=== PATIENT | male | born 1980 | race Caucasian/White ===

== ENCOUNTER 2019-08-24 11:06 | Emergency (ER) | payer MEDICARE, OTHER ==
[2019-08-24 11:22] VITALS: RESP 16
--- NOTE | 2019-08-24 11:50 | ED ---
Lower Extremity Injury HPI - General Chief Complaint: Extremity Injury, Lower Stated Complaint: left foot ulcer Time Seen by Provider: 08/24/19 11:23 Source: Caregiver Mode of arrival: ambulatory Limitations: no limitations - History of Present Illness Initial Comments: 39-year-old male with history of [place] tooth syndrome, myelodysplastic syndrome presenting today for chief complaint of left great toe ulceration concerned for infection. She is accompanied by his traveling sales representative who is providing history as patient is nonverbal. She states that they noticed an ulceration yesterday and brought patient to the foot doctor when she was sent to the e mergency department for evaluation of possible foot infection. She states the patient has been going to a new day program when he is gone now and more tenderness used twice she states usually wears slippers. She states they noticed today an area of ulceration on the plantar aspect of the great toe. She states there is some surrounding redness. Denies fevers, coolness, or pallor of the extremity. She states that she noted a blister that had developed on the toe today. She states the toe appears swollen in comparison with baseline. 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 Remaining ROS (-). Upon arrival patient appears nontoxic, no distress, smiling. - Related Data Previous Rx's Medication Instructions Recorded Cephalexin [Keflex] 500 mg PO Q6HR 10 Days #40 cap 08/24/19 Sulfamethox-Tmp 800-160Mg [Bactrim 1 tab PO Q12HR 10 Days #20 tab 08/24/19 DS 800-160 mg] Allergies Allergy/AdvReac Type Severity Reaction Status Date / Time bee stings Allergy Swelling Uncoded 08/24/19 11:17 Review of Systems ROS Statement: Those systems with pertinent positive or pertinent negative responses have been documented in the HPI. ROS Other: All systems not noted in ROS Statement are negative. Past Medical History Additional Past Medical History / Comment(s): Myelodysplastic syndrome, [place]- Ailyn tooth disease. lives in senior care History of Any Multi-Drug Resistant Organisms: None Reported Past Surgical History: No Surgical Hx Reported Past Psychological History: No Psychological Hx Reported Smoking Status: Never smoker Past Alcohol Use History: None Reported Past Drug Use History: Unable to Obtain General Exam - General Exam Comments Initial Comments: General: The patient is awake and alert, in no distress Eye: Pupils are equal, round and reactive to light, extra-ocular movements are intact. No nystagmus. There is normal conjunctiva bilaterally. No signs of icterus. Ears, nose, mouth and throat: There are moist mucous membranes and no oral lesions. Neck: The neck is supple, there is no tenderness or JVD. Cardiovascular: There is a regular rate and rhythm. No murmur, rub or gallop is appreciated. Respiratory: Lungs are clear to auscultation, respirations are non-labored, breath sounds are equal. No wheezes, stridor, rales, or rhonchi. Musculoskeletal: Ulceration on plantar aspect of left great toe, there is small amount of serosanguineous drainage when squeezed otherwise no purulent drainage. No significant erythema there is some spreading redness surrounding the ulceration extending onto the distal foot. Grimaces with deep palpation, no grimacing with light, no obvious foreign body, or deeper injury/ no laceration. Flaccid legs b/l with decreased mm tone. Sensation intact. DP pulses equal bilat erally 2+. Warm foot. Neurological: Non verbal. CN II-XII intact, There are obvious muscle atrophy of UE and LE. Coordination appears grossly intact. Speech is normal. Skin: Skin is warm and dry and no rashes or lesions are noted. Psychiatric: Cooperative, obvious developmental delays Limitations: no limitations Course Vital Signs 08/24/19 08/24/19 11:17 13:00 Temperature 98.2 F 98.4 F Pulse Rate 81 82 Respiratory 16 16 Rate Blood Pressure 116/76 116/77 O2 Sat by Pulse 100 98 Oximetry Medical Decision Making - Medical Decision Making 39-year-old white male presents today for chief complaint of great toe ulceration. Mild cellulitis appreciated. No purulent drainage, XR (-) for osteomyelitis, howver there is suspect old fracture, no laceration consistent with mechanism of foreign body or obvious FB on exam. Patient labs stable. Afebrile, does not appear toxic. No history of DM and compromise. Patient was evaluated in person by my attending provider Dr. 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 - Lab Data Result diagrams: 08/24/19 11:42 08/24/19 11:42 Lab Results 08/24/19 08/24/19 08/24/19 Range/Units 11:42 11:42 11:42 WBC 7.7 (3.8-10.6) k/uL RBC 5.37 (4.30-5.90) m/uL Hgb 14.4 (13.0-17.5) gm/dL Hct 45.2 (39.0-53.0) % MCV 84.2 (80.0-100.0) fL MCH 26.8 (25.0-35.0) pg MCHC 31.8 (31.0-37.0) g/dL RDW 13.2 (11.5-15.5) % Plt Count 232 (150-450) k/uL Neutrophils % (Manual) 40 % Lymphocytes % (Manual) 47 % Monocytes % (Manual) 8 % Eosinophils % (Manual) 3 % Metamyelocytes % 1 % Myelocytes % 1 % Neutrophils # (Manual) 3.08 (1.3-7.7) k/uL Lymphocytes # (Manual) 3.62 (1.0-4.8) k/uL Monocytes # (Manual) 0.62 (0-1.0) k/uL Eosinophils # (Manual) 0.23 (0-0.7) k/uL Metamyelocytes # (Man) 0.08 H (0) k/uL Myelocytes # (Manual) 0.08 H (0) k/uL Nucleated RBCs 0 (0-0) /100 WBC Manual Slide Review Performed Sodium 139 (137-145) mmol/L Potassium 5.1 (3.5-5.1) mmol/L Chloride 105 (98-107) mmol/L Carbon Dioxide 24 (22-30) mmol/L Anion Gap 10 mmol/L BUN 13 (9-20) mg/dL Creatinine 0.42 L (0.66-1.25) mg/dL Est GFR (CKD-EPI)AfAm >90 (>60 ml/min/1.73 sqM) Est GFR (CKD-EPI)NonAf >90 (>60 ml/min/1.73 sqM) Glucose 87 (74-99) mg/dL Plasma Lactic Acid Jakob 1.5 (0.7-2.0) mmol/L Calcium 9.9 (8.4-10.2) mg/dL Total Bilirubin 0.8 (0.2-1.3) mg/dL AST 49 (17-59) U/L ALT 38 (4-49) U/L Alkaline Phosphatase 75 (38-126) U/L Total Protein 8.5 H (6.3-8.2) g/dL Albumin 4.9 (3.5-5.0) g/dL Disposition Clinical Impression: Pressure ulcer of left foot, Left foot pain Disposition: HOME SELF-CARE Condition: Good Additional Instructions: Please use medication as discussed. Please follow-up with podiatry in the next 1-2 days for reevaluation as well as primary care provider. Please return to e mergency room if the symptoms increase or worsen or for any other concerns. Prescriptions: Sulfamethox-Tmp 800-160Mg [Bactrim DS 800-160 mg] 1 tab PO Q12HR 10 Days #20 tab Cephalexin [Keflex] 500 mg PO Q6HR 10 Days #40 cap Is patient prescribed a controlled substance at d/c from ED?: No Referrals: Doyle Aparicio MD [Primary Care Provider] - 1-2 days Time of Disposition: 12:29
[2019-08-24 11:54] LABS: HCT 45.2 % (39.0-53.0); HGB 14.4 gm/dL (13.0-17.5); MCH 26.8 pg (25.0-35.0); MCHC 31.8 g/dL (31.0-37.0); MCV 84.2 fL (80.0-100.0); Mean Platelet Volume 9.9; Platelet Count 232 k/uL (150-450); RBC 5.37 m/uL (4.30-5.90); RDW 13.2 % (11.5-15.5); WBC 7.7 k/uL (3.8-10.6)
--- NOTE | 2019-08-24 12:01 | XR ---
EXAMINATION TYPE: XR foot limited LT DATE OF EXAM: 08/24/2019 CLINICAL HISTORY: Left great toe ulceration. Left foot pain. TECHNIQUE: Frontal, lateral, and oblique images of the left foot are obtained. COMPARISON: None FINDINGS: There is no acute fracture/dislocation evident in the left foot. There is diffuse osseous demineralization. There is punctate either osseous fragment or radiopaque foreign body medial to the interphalangeal joint of the first digit. This measures 1 to 2 mm. No periosteal reaction seen. Soft tissue swelling of the first digit is noted. IMPRESSION: 1. Punctate 1 to 2 mm linear density medial to the interphalangeal joint of the first digit that may represent a small old osseous fragment from a prior fracture deformity or foreign body. Soft tissue s welling of the left foot is seen with no current sequela of osteomyelitis on x-ray. 2. No acute fracture or dislocation in the left foot.
[2019-08-24 12:02] LABS: ALT 38 U/L (4-49); African American GFR (CKD) >90 (>60 ml/min/1.73 sqM); Anion Gap 10 mmol/L; Blood Urea Nitrogen 13 mg/dL (9-20); Calcium 9.9 mg/dL (8.4-10.2); Carbon Dioxide 24 mmol/L (22-30); Chloride 105 mmol/L (98-107); Glucose 87 mg/dL (74-99); Non-African American GFR(CKD) >90 (>60 ml/min/1.73 sqM); Sodium 139 mmol/L (137-145); Total Bilirubin 0.8 mg/dL (0.2-1.3)
[2019-08-24 12:08] LABS: Eosinophils # (M) 0.23 k/uL (0-0.7); Lymphocytes # (M) 3.62 k/uL (1.0-4.8); Metamyelocytes # (M) 0.08 k/uL (0); Metamyelocytes % 1 %; Monocytes # (M) 0.62 k/uL (0-1.0); Myelocytes # (M) 0.08 k/uL (0); Myelocytes % 1 %; Neutrophils # (M) 3.08 k/uL (1.3-7.7); Neutrophils % (M) 40 %; Nucleated Red Blood Cells 0 /100 WBC (0-0); Total Cells Counted 200
[2019-08-24 12:10] LABS: Albumin 4.9 g/dL (3.5-5.0); Potassium 5.1 mmol/L (3.5-5.1); Total Protein 8.5 g/dL (6.3-8.2)
[2019-08-24 12:11] LABS: AST 49 U/L (17-59); Alkaline Phosphatase 75 U/L (38-126)
[2019-08-24] MEDS ORDERED: cefTRIAXone IN SWFI 1,000 MG/10 ML SYRINGE IVP STA (12:28)
[2019-08-24 13:01] VITALS: BP 116/77; PULSE 82; TEMP 98.4
== END 2019-08-24 13:00 | disposition home or self-care (01) ==
LOC: EC 11:06 → EEVIPCON 11:06 → EC 13:00
DX: L97.529 Non-pressure chronic ulcer of other part of left foot with unspecified severity (principal); D46.9 Myelodysplastic syndrome, unspecified; M62.50 Muscle wasting and atrophy, not elsewhere classified, unspecified site; R62.50 Unspecified lack of expected normal physiological development in childhood; Z91.030 Bee allergy status
CPT/HCPCS: 36415; 80053; 83605; 85025; 87040; 73620; 96374; 99283; J0696

== ENCOUNTER 2021-03-05 17:51 | Inpatient (IN) | payer MEDICARE, OTHER ==
[2021-03-05] MEDS ORDERED: SODIUM CHLORIDE 0.9% 1,000 ML IV STA (18:22)
--- NOTE | 2021-03-05 18:52 | ED ---
General Adult HPI - General Chief complaint: Abdominal Pain Stated complaint: GI Issues Time Seen by Provider: 03/05/21 18:21 Source: EMS Mode of arrival: EMS Limitations: physical limitation - History of Present Illness Initial comments: Dictation was produced using ISpeak dictation software. please excuse any grammatical, word or spelling errors. Chief Complaint: 40-year-old male with past medical history of mental delay presents from [facility] home for constipation and possible bowel obstruction History of Present Illness: She is a 40-year-old male he is unable to provide history of present illness. Report was received from nursing received report from EMS. Patient allegedly has not had a bowel movement in 8 days. An x-ray was performed on an outpatient basis showing findings concerning for bowel obstruction. Unable to obtain secondary to mental status PHYSICAL EXAM: General Impression: Alert, smiling not in acute distress HEENT: Normocephalic atraumatic, extra-ocular movements intact, pupils equal and reactive to light bilaterally, mucous membranes moist. Cardiovascular: Heart regular rate and rhythm Chest: Able to complete full sentences, no retractions, no tachypnea Abdomen: abdomen soft, non-tender, non-distended, no organomegaly Musculoskeletal: Pulses present and equal in all extremities, no peripheral ed flynn Motor: no focal deficits noted Neurological: CN II-XII grossly intact, no focal motor or sensory deficits noted Skin: Intact with no visualized rashes Psych: Normal affect and mood ED course: 40-year-old male with history of mental delay presents to the emergency department for possible bowel obstruction and constipation. Vital signs upon arrival are within acceptable limits. Patient's well-appearing at bedside. He has a very benign abdomen on physical examination. No tympany, abdomen is soft. Computed tomography scan shows large amount of stool in the colon with possible rectal impaction. patient is mentally delayed and unable to cooperate and follow appropriate directions if he is given a rectal enema. Patient will be trialed with oral lactulose. He'll be admitted for constipation management. Gen. surgery be consulted. Patient given some oral lactulose. Disimpaction was attempted with some debulking of impacted stool. The stool did not appear to be very hard. Patient well be admitted for further constipation treatment. he appears well-appearing. He is smiling and watching TV. Patient will be admitted to [facility] with general surgery on consult for further care. - Related Data Home Medications Medication Instructions Recorded Confirmed Acetaminophen Tab [Tylenol Tab] 500 - 1,000 mg PO Q6H PRN 03/05/21 03/05/21 Cbd Oil 350mg 700 mg SL BID 03/05/21 03/05/21 EPINEPHrine (Auto Inject) [Epipen] 0.3 mg IM ONCE PRN 03/05/21 03/05/21 Ibuprofen [Motrin Ib] 200 - 400 mg PO Q6H PRN 03/05/21 03/05/21 Lactulose 20 gm PO DAILY 03/05/21 03/05/21 Lactulose [Cephulac] 10 - 20 gm PO DAILY PRN 03/05/21 03/05/21 Magnesium Hydroxide [Milk of 2,400 mg PO HS 03/05/21 03/05/21 Magnesia] Magnesium Hydroxide [Milk of 2,400 mg PO ONCE PRN 03/05/21 03/05/21 Magnesia] Na Phos,M-B/Na Phos,Di-Ba [Fleet 133 ml RECTAL ONCE PRN 03/05/21 03/05/21 Adult] [place]-3 Acid Ethyl Esters [Lovaza] 1 gm PO BID 03/05/21 03/05/21 diphenhydrAMINE [Benadryl] 25 - 50 mg PO Q4-6H PRN 03/05/21 03/05/21 guaiFENesin SYRUP 100MG/5ML 200 mg PO Q6H PRN 03/05/21 03/05/21 [Robitussin] Allergies Allergy/AdvReac Type Severity Reaction Status Date / Time bee venom protein (honey bee) Allergy Swelling Verified 03/05/21 18:40 Review of Systems ROS Statement: Those systems with pertinent positive or pertinent negative responses have been documented in the HPI. ROS Other: All systems not noted in ROS Statement are negative. Past Medical History Past Medical History: Unable to Obtain Additional Past Medical History / Comment(s): Myelodysplastic syndrome, [place]- Ailyn tooth disease. lives in [facility] History of Any Multi-Drug Resistant Organisms: None Reported Past Surgical History: No Surgical Hx Reported Past Psychological History: No Psychological Hx Reported Smoking Status: Never smoker Past Alcohol Use History: None Reported Past Drug Use History: Unable to Obtain General Exam Limitations: physical limitation Course Vital Signs 08/26/21 08/26/21 17:54 20:51 Temperature 97.4 F L Pulse Rate 81 74 Respiratory 18 18 Rate Blood Pressure 126/88 139/86 O2 Sat by Pulse 99 97 Oximetry Medical Decision Making - Lab Data Result diagrams: 03/05/21 18:50 03/05/21 18:50 Lab Results 03/05/21 03/05/21 03/05/21 Range/Units 18:50 18:50 18:50 WBC 7.6 (3.8-10.6) k/uL RBC 5.91 H (4.30-5.90) m/uL Hgb 16.4 (13.0-17.5) gm/dL Hct 50.3 (39.0-53.0) % MCV 85.1 (80.0-100.0) fL MCH 27.7 (25.0-35.0) pg MCHC 32.6 (31.0-37.0) g/dL RDW 13.8 (11.5-15.5) % Plt Count 242 (150-450) k/uL MPV 11.2 Neutrophils % (Manual) 49 % Band Neuts % (Manual) 1 % Lymphocytes % (Manual) 41 % Monocytes % (Manual) 5 % Eosinophils % (Manual) 4 % Neutrophils # 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 OPERATOR Neutrophils # (Manual) 3.80 (1.3-7.7) k/uL Lymphocytes # (Manual) 3.12 (1.0-4.8) k/uL Monocytes # (Manual) 0.38 (0-1.0) k/uL Eosinophils # (Manual) 0.30 (0-0.7) k/uL Nucleated RBCs 0 (0-0) /100 WBC Sodium 141 (137-145) mmol/L Potassium 4.7 (3.5-5.1) mmol/L Chloride 102 (98-107) mmol/L Carbon Dioxide 28 (22-30) mmol/L Anion Gap 11 mmol/L BUN 10 (9-20) mg/dL Creatinine 0.46 L (0.66-1.25) mg/dL Est GFR (CKD-EPI)AfAm >90 (>60 ml/min/1.73 sqM) Est GFR (CKD-EPI)NonAf >90 (>60 ml/min/1.73 sqM) Glucose 88 (74-99) mg/dL Plasma Lactic Acid Jakob 1.6 (0.7-2.0) mmol/L Calcium 10.5 H (8.4-10.2) mg/dL Magnesium 2.6 H (1.6-2.3) mg/dL Total Bilirubin 0.5 (0.2-1.3) mg/dL AST 28 (17-59) U/L ALT 30 (4-49) U/L Alkaline Phosphatase 85 (38-126) U/L Total Protein 8.2 (6.3-8.2) g/dL Albumin 5.0 (3.5-5.0) g/dL Disposition Clinical Impression: Constipation Disposition: ADMITTED IP TO THIS HOSP Condition: Fair Referrals: None,Stated [Primary Care Provider] - 1-2 days
[2021-03-05 18:58] LABS: HCT 50.3 % (39.0-53.0); HGB 16.4 gm/dL (13.0-17.5); MCH 27.7 pg (25.0-35.0); MCHC 32.6 g/dL (31.0-37.0); MCV 85.1 fL (80.0-100.0); Mean Platelet Volume 11.2; Platelet Count 242 k/uL (150-450); RBC 5.91 m/uL (4.30-5.90); RDW 13.8 % (11.5-15.5); WBC 7.6 k/uL (3.8-10.6)
[2021-03-05 19:08] LABS: ALT 30 U/L (4-49); AST 28 U/L (17-59); African American GFR (CKD) >90 (>60 ml/min/1.73 sqM); Alkaline Phosphatase 85 U/L (38-126); Anion Gap 11 mmol/L; Blood Urea Nitrogen 10 mg/dL (9-20); Calcium 10.5 mg/dL (8.4-10.2); Carbon Dioxide 28 mmol/L (22-30); Chloride 102 mmol/L (98-107); Glucose 88 mg/dL (74-99); Magnesium 2.6 mg/dL (1.6-2.3); Non-African American GFR(CKD) >90 (>60 ml/min/1.73 sqM); Potassium 4.7 mmol/L (3.5-5.1); Sodium 141 mmol/L (137-145); Total Bilirubin 0.5 mg/dL (0.2-1.3); Total Protein 8.2 g/dL (6.3-8.2)
[2021-03-05 19:25] LABS: Band Neutrophils % 1 %; Lymphocytes # (M) 3.12 k/uL (1.0-4.8); Monocytes # (M) 0.38 k/uL (0-1.0); Neutrophils % (M) 49 %; Nucleated Red Blood Cells 0 /100 WBC (0-0); Total Cells Counted 100
--- NOTE | 2021-03-05 20:13 | XR ---
EXAMINATION TYPE: XR abdomen acute w cxr DATE OF EXAM: 03/05/2021 COMPARISON: NONE HISTORY: 40-year-old male constipation TECHNIQUE: Supine, upright, and left side down lateral decubitus views of the abdomen are obtained. FINDINGS: Patient is rotated towards the right casting differential density over the right hemithorax . No consolidation or pleural effusion. Lung volumes diminished. No evidence for free intraperitoneal air. Solid stool distending the rectum up to 7.9 cm wide. The right hemicolon is gassy distended up to 7.4 cm. Moderate additional stool within the left side of the colon. No dilated small bowel loops. No di fferential air-fluid levels. IMPRESSION: Marked distention of the rectum up to 7.9 cm wide secondary to solid stool impaction. Additional mode rate stool within the left side of the colon and gaseous distention of the right side of the colon, d ilated up to 7.4 cm. Relative distal colonic obstruction from fecal impaction not excluded. Recommend appropriate disimpaction and cleansing enema.
--- NOTE | 2021-03-05 21:21 | CT ---
EXAMINATION TYPE: CT abdomen pelvis w con DATE OF EXAM: 03/05/2021 COMPARISON: None HISTORY: suspected bowel obstruction CT DLP: 813.1 mGycm, Automated Exposure Control for Dose Reduction was Utilized. CONTRAST: CT scan of the abdomen and pelvis is performed with oral and with IV Contrast, patient injected with 100 mL of Isovue 300. FINDINGS: LUNG BASES: Bibasilar subsegmental atelectasis. INCLUDED CARDIAC STRUCTURES: Unremarkable LIVER: No significant abnormality is appreciated. GALLBLADDER : Enhancement of the gallbladder wall with questionable filling defects, no fluid surroun ding the gallbladder. BILIARY TREE: No abnormal biliary tree dilation. PANCREAS: No significant abnormality is seen. SPLEEN: No significant abnormality is seen. ADRENALS: No significant abnormality is seen. KIDNEYS AND URETERS: No significant abnormality is seen. URINARY BLADDER: No significant abnormality is appreciated. PROSTATE: Unremarkable. ESOPHAGUS: No significant abnormality is seen. STOMACH: No significant abnormality is seen. SMALL BOWEL: No significant abnormality is seen. LARGE BOWEL: No significant abnormality is seen. No intestinal obstruction. Large amount of stool in the colon and rectum. APPENDIX: No significant abnormality is seen. HERNIAS: No significant abnormality is seen. PERITONEUM/MESENTRY: No pneumoperitoneum or ascites. LYMPH NODES: No enlarged retroperitoneal or pelvic lymph nodes are appreciated. MAJOR VASCULAR STRUCTURES: Nonaneurysmal aorta. Unremarkable inferior vena cava. OSSEOUS STRUCTURES: Calcification of the T8-9 disc. No acute osseous normality. IMPRESSION: No evidence of acute intra-abdominal or pelvic processes. Large amount of stool in the colon with possible rectal impaction.
[2021-03-05] MEDS ORDERED: LACTULOSE 20 GM/30 ML CUP PO ONE (21:29)
[2021-03-05] MEDS ORDERED: NALOXONE 0.4 MG/ML 1 ML VIAL IV PRN (22:05)
[2021-03-05] MEDS ORDERED: polyethylene glycoL 3350 17 GM POWD.PACK PO STA (22:06)
[2021-03-05] MEDS: SODIUM CHLORIDE 0.9% 1,000 ML IV SCH (22:31)
--- NOTE | 2021-03-05 23:32 | P.HPIM ---
History of Present Illness H&P Date: 03/05/21 The patient is a 40-year-old male with a PMH of severe developmental delay, resident of an adult foster care who was sent in to the emergency room due to constipation. History obtained from the chart and from the ED physician as the patient was nonverbal at interview and examination. The patient had reportedly not had a bowel movement in the past 8 days with an x-ray that was performed in the outpatient setting showing possible bowel obstruction. In the emergency room, a CT abdomen and pelvis revealed a large amount of stool in the colon with possible rectal impaction. Laboratory evaluation from the emergency room was unremarkable. Vital signs were also unremarkable. The patient underwent manual disimpaction in the emergency room and is being admitted for further management. Review of systems: Pertinent positives and negatives as discussed in HPI, a complete review of systems was performed and all other systems are negative. Physical examination: General: non toxic, no distress, appears at stated age, normal weight Derm: no unusual rashes/lesions no unusual ecchymoses, warm, dry Head: atraumatic, normocephalic, symmetric Eyes: EOMI, no lid lag, anicteric sclera, pupils equal round reactive to light ENT: Nose and ears atraumatic, no thrush, no pharyngeal erythema Neck: No thyromegaly, no cervical lymphadenopathy, trachea midline, supple Mouth: no lip lesion, mucus membranes moist, poor dentition Cardiovascular: S1S2 reg, no murmur, positive posterior tibial pulse bilateral, no edema, capillary refill less than 2 seconds Lungs: CTA bilateral, no rhonchi, no rales , no accessory muscle use Abdominal: soft, nontender to palpation, no guarding, no appreciable organom egaly, normal bowel sounds Ext: no gross muscle atrophy, unable to test strength is patient not following commands, moving all extremities, no contractures, Neuro: No gross focal deficits noted, limited exam as patient not following commands, maintaining eye contact and opened mouth for examination Assessment/plan Constipation with possible rectal impaction -Status post manual disimpaction -Status post lactulose and MiraLAX -Continue with IV fluids -Continue with home dose of lactulose 20 mg daily along with milk of magnesia 2400 mg daily at bedtime DVT prophylaxis -Heparin subq The patient is admitted with an anticipated les than 2 midnight stay for evaluation of fecal impaction CODE STATUS: Full Code Discussed with: ROSIO Anticipated discharge date: in am Anticipated discharge place: [facility] Past Medical History Past Medical History: Unable to Obtain Additional Past Medical History / Comment(s): Myelodysplastic syndrome, [place]- Ailyn tooth disease. lives in assisted History of Any Multi-Drug Resistant Organisms: None Reported Past Surgical History: No Surgical Hx Reported Past Psychological History: No Psychological Hx Reported Smoking Status: Never smoker Past Alcohol Use History: None Reported Past Drug Use History: Unable to Obtain - Past Family History Father Family Medical History: Unable to Obtain Additional Family Medical History / Comment(s): Unable to obtain due to severe delay Medications and Allergies Home Medications Medication Instructions Recorded Confirmed Type Acetaminophen Tab [Tylenol Tab] 500 - 1,000 mg PO Q6H PRN 03/05/21 03/05/21 History Cbd Oil 350mg 700 mg SL BID 03/05/21 03/05/21 History EPINEPHrine (Auto Inject) [Epipen] 0.3 mg IM ONCE PRN 03/05/21 03/05/21 History Ibuprofen [Motrin Ib] 200 - 400 mg PO Q6H PRN 03/05/21 03/05/21 History Lactulose 20 gm PO DAILY 03/05/21 03/05/21 History Lactulose [Cephulac] 10 - 20 gm PO DAILY PRN 03/05/21 03/05/21 History Magnesium Hydroxide [Milk of 2,400 mg PO HS 03/05/21 03/05/21 History Magnesia] Magnesium Hydroxide [Milk of 2,400 mg PO ONCE PRN 03/05/21 03/05/21 History Magnesia] Na Phos,M-B/Na Phos,Di-Ba [Fleet 133 ml RECTAL ONCE PRN 03/05/21 03/05/21 History Adult] [place]-3 Acid Ethyl Esters [Lovaza] 1 gm PO BID 03/05/21 03/05/21 History diphenhydrAMINE [Benadryl] 25 - 50 mg PO Q4-6H PRN 03/05/21 03/05/21 History guaiFENesin SYRUP 100MG/5ML 200 mg PO Q6H PRN 03/05/21 03/05/21 History [Robitussin] Allergies Allergy/AdvReac Type Severity Reaction Status Date / Time bee venom protein (honey bee) Allergy Swelling Verified 03/05/21 18:40 Physical Exam Vitals: Vital Signs Temp Pulse Resp BP Pulse Ox 03/05/21 22:35 98.1 F 74 18 117/78 100 03/05/21 20:51 74 18 139/86 97 03/05/21 17:54 97.4 F L 81 18 126/88 99 Intake and Output 03/05/21 03/05/21 03/06/21 14:59 22:59 06:59 Other: Weight 68.039 kg Results CBC & Chem 7: 03/05/21 18:50 03/05/21 18:50 Labs: Abnormal Lab Results - Last 24 Hours (Table) 03/05/21 03/05/21 Range/Units 18:50 18:50 RBC 5.91 H (4.30-5.90) m/uL Creatinine 0.46 L (0.66-1.25) mg/dL Calcium 10.5 H (8.4-10.2) mg/dL Magnesium 2.6 H (1.6-2.3) mg/dL
[2021-03-06] MEDS: HEPARIN SODIUM,PORCINE/PF 5,000 UNIT/0.5 ML SYRINGE SQ SCH ×4 (03:11→23:58)
[2021-03-06] MEDS: LACTULOSE 20 GM/30 ML CUP PO SCH (10:09)
[2021-03-06] MEDS: SODIUM CHLORIDE 0.9% 1,000 ML IV SCH ×2 (12:21→23:58)
--- NOTE | 2021-03-06 12:43 | P.PN ---
Subjective Progress Note Date: 03/06/21 Patient appeared comfortable today. He denies any abdominal pain. Objective - Vital Signs Vital signs: Vital Signs Temp 97.3 F L 03/06/21 07:00 Pulse 83 03/06/21 07:00 Resp 16 03/06/21 07:00 BP 128/75 03/06/21 07:00 Pulse Ox 95 03/06/21 07:00 Intake & Output 03/05/21 03/06/21 03/06/21 18:59 06:59 18:59 Intake Total 118 Balance 118 Weight 68.039 kg 68.039 kg Intake: Oral 118 Other: Voiding Method Diaper - Exam General: The patient is awake and alert, in no distress Eye: there is normal conjunctiva bilaterally. Neck: The neck is supple, there is no JVD. Cardiovascular: Normal S1-S2, no S3-S4, no murmurs. Respiratory: Lungs clear to auscultation bilaterally Gastrointestinal: Abdomen is soft, nontender Musculoskeletal: There is no pedal edema. . Skin: Skin is warm and dry - Labs CBC & Chem 7: 03/05/21 18:50 03/05/21 18:50 Labs: Abnormal Lab Results - Last 24 Hours (Table) 03/05/21 03/05/21 Range/Units 18:50 18:50 RBC 5.91 H (4.30-5.90) m/uL Creatinine 0.46 L (0.66-1.25) mg/dL Calcium 10.5 H (8.4-10.2) mg/dL Magnesium 2.6 H (1.6-2.3) mg/dL Assessment and Plan Assessment: This is a 40-year-old male with past medical history of developmental delay who presented to the emergency room from a local adult foster care with constipation and not having bowel movement for a few days. Patient was evaluated in the ER and CT abdomen and pelvis showed large amount of stool in the colon with possible rectal impaction. Patient was disimpacted in the ER. He is maintained on bowel regimen. To the hospital for gentle IV fluid hydration. His overall condition improved significantly. We will continue to monitor for the rest of the day and initial patient is having bowel movement. Anticipate discharge home tomorrow.
--- NOTE | 2021-03-06 12:44 | P.GSCN ---
History of Present Illness Consult date: 03/06/21 History of present illness: CHIEF COMPLAINT: Constipation HISTORY OF PRESENT ILLNESS: This is a 40-year-old male with severe developmental delay and myelodysplastic syndrome. Patient lives in adult foster care facility. He presents to the emergency room due to constipation. Patient is nonverbal. Information was obtained from patient's chart. It was reported the patient had not had a bowel movement in about 8 days. Patient had abdominal x- ray and a computed tomography scan of the abdomen that showed no evidence for acute intra-abdominal or pelvic process. Large amount of stool in the colon with possible rectal impaction. Patient was disimpacted in the ER. He has received lactulose, MiraLAX and mag. Patient did have another bowel movement this morning. His abdomen is soft and nondistended. No nausea or vomiting reported. Surgical service was consult in regards to rectal impaction. PAST MEDICAL HISTORY: See list. PAST SURGICAL HISTORY: See list. MEDICATIONS: See list. ALLERGIES: See list. SOCIAL HISTORY: No illicit drug use. REVIEW OF SYSTEMS: CONSTITUTIONAL: Denies fever or chills. HEENT: Denies blurred vision, vision changes, or eye pain. Denies hemoptysis CARDIOVASCULAR: Denies chest pain or pressure. RESPIRATORY: No shortness of breath. GASTROINTESTINAL: See HPI for pertinent findings HEMATOLOGIC: Denies bleeding disorders. GENITOURINARY: Denies any blood in urine or increased urinary frequency. SKIN: Denies pruitis. Denies rash. PHYSICAL EXAM: VITAL SIGNS: Reviewed GENERAL: Well-developed in no acute distress. HEENT: No sclera icterus. Extraocular movements grossly intact. Moist buccal mucosa. Head is atraumatic, normocephalic. No nasal drainage. ABDOMEN: Soft. Nondistended. Nontender NEUROLOGIC: Awake and alert. Nonverbal LABORATORY DATA: WBC 7.6 hemoglobin 16.4 platelets 242 sodium 141 creatinine 0.46 IMAGING: Abdominal x-ray marked distention of the rectum up to 7.9 cm wide secondary to s olid stool impaction. Additional moderate stool within the left side of the colon and gases distention of the right side of the colon dilated up to 7.4 cm. Relative distal colonic obstruction from fecal impaction excluded. Recommend appropriate disimpaction and cleansing enema. Computed tomography scan abdomen and pelvis no evidence of acute intra-abdominal or pelvic processes. Large amount of stool in the colon with possible rectal impaction ASSESSMENT: 1. Constipation and rectal fecal impaction status post disimpaction by ER physician PLAN: -No surgical intervention planned -Continue bowel regimen -Continue regular pureed diet -Patient can be discharge from surgical standpoint when medically cleared Thank you for this consultation Physician Software Developer Mid Level note has been reviewed by physician. Signing provider agrees with the documented findings, assessment, and plan of care. Past Medical History Past Medical History: Unable to Obtain Additional Past Medical History / Comment(s): Myelodysplastic syndrome, Adin- Ailyn tooth disease. lives in halfway History of Any Multi-Drug Resistant Organisms: None Reported Past Surgical History: No Surgical Hx Reported Past Psychological History: No Psychological Hx Reported Smoking Status: Never smoker Past Alcohol Use History: None Reported Past Drug Use History: Unable to Obtain - Past Family History Father Family Medical History: Unable to Obtain Additional Family Medical History / Comment(s): Unable to obtain due to severe delay Medications and Allergies Home Medications Medication Instructions Recorded Confirmed Type Acetaminophen Tab [Tylenol Tab] 500 - 1,000 mg PO Q6H PRN 03/05/21 03/05/21 History Cbd Oil 350mg 700 mg SL BID 03/05/21 03/05/21 History EPINEPHrine (Auto Inject) [Epipen] 0.3 mg IM ONCE PRN 03/05/21 03/05/21 History Ibuprofen [Motrin Ib] 200 - 400 mg PO Q6H PRN 03/05/21 03/05/21 History Lactulose 20 gm PO DAILY 03/05/21 03/05/21 History Lactulose [Cephulac] 10 - 20 gm PO DAILY PRN 03/05/21 03/05/21 History Magnesium Hydroxide [Milk of 2,400 mg PO HS 03/05/21 03/05/21 History Magnesia] Magnesium Hydroxide [Milk of 2,400 mg PO ONCE PRN 03/05/21 03/05/21 History Magnesia] Na Phos,M-B/Na Phos,Di-Ba [Fleet 133 ml RECTAL ONCE PRN 03/05/21 03/05/21 History Adult] [place]-3 Acid Ethyl Esters [Lovaza] 1 gm PO BID 03/05/21 03/05/21 History diphenhydrAMINE [Benadryl] 25 - 50 mg PO Q4-6H PRN 03/05/21 03/05/21 History guaiFENesin SYRUP 100MG/5ML 200 mg PO Q6H PRN 03/05/21 03/05/21 History [Robitussin] Allergies Allergy/AdvReac Type Severity Reaction Status Date / Time bee venom protein (honey bee) Allergy Swelling Verified 03/05/21 18:40 Surgical - Exam Vital Signs Temp Pulse Resp BP Pulse Ox 97.4 F L 81 18 126/88 99 03/05/21 17:54 03/05/21 17:54 03/05/21 17:54 03/05/21 17:54 03/05/21 17:54 Results - Labs 03/05/21 18:50 03/05/21 18:50 Abnormal Lab Results - Last 24 Hours (Table) 03/05/21 03/05/21 Range/Units 18:50 18:50 RBC 5.91 H (4.30-5.90) m/uL Creatinine 0.46 L (0.66-1.25) mg/dL Calcium 10.5 H (8.4-10.2) mg/dL Magnesium 2.6 H (1.6-2.3) mg/dL Diabetes panel 03/05/21 Range/Units 18:50 Sodium 141 (137-145) mmol/L Potassium 4.7 (3.5-5.1) mmol/L Chloride 102 (98-107) mmol/L Carbon Dioxide 28 (22-30) mmol/L BUN 10 (9-20) mg/dL Creatinine 0.46 L (0.66-1.25) mg/dL Glucose 88 (74-99) mg/dL Calcium 10.5 H (8.4-10.2) mg/dL AST 28 (17-59) U/L ALT 30 (4-49) U/L Alkaline Phosphatase 85 (38-126) U/L Total Protein 8.2 (6.3-8.2) g/dL Albumin 5.0 (3.5-5.0) g/dL Calcium panel 03/05/21 Range/Units 18:50 Calcium 10.5 H (8.4-10.2) mg/dL Albumin 5.0 (3.5-5.0) g/dL Pituitary panel 03/05/21 Range/Units 18:50 Sodium 141 (137-145) mmol/L Potassium 4.7 (3.5-5.1) mmol/L Chloride 102 (98-107) mmol/L Carbon Dioxide 28 (22-30) mmol/L BUN 10 (9-20) mg/dL Creatinine 0.46 L (0.66-1.25) mg/dL Glucose 88 (74-99) mg/dL Calcium 10.5 H (8.4-10.2) mg/dL Adrenal panel 03/05/21 Range/Units 18:50 Sodium 141 (137-145) mmol/L Potassium 4.7 (3.5-5.1) mmol/L Chloride 102 (98-107) mmol/L Carbon Dioxide 28 (22-30) mmol/L BUN 10 (9-20) mg/dL Creatinine 0.46 L (0.66-1.25) mg/dL Glucose 88 (74-99) mg/dL Calcium 10.5 H (8.4-10.2) mg/dL Total Bilirubin 0.5 (0.2-1.3) mg/dL AST 28 (17-59) U/L ALT 30 (4-49) U/L Alkaline Phosphatase 85 (38-126) U/L Total Protein 8.2 (6.3-8.2) g/dL Albumin 5.0 (3.5-5.0) g/dL
[2021-03-06] MEDS ORDERED: MAGNESIUM HYDROXIDE 2,400 MG/10 ML CUP PO SCH (21:00)
[2021-03-07] MEDS: HEPARIN SODIUM,PORCINE/PF 5,000 UNIT/0.5 ML SYRINGE SQ SCH (07:18)
[2021-03-07] MEDS: LACTULOSE 20 GM/30 ML CUP PO SCH (07:18)
[2021-03-07 07:41] VITALS: BP 128/73; PULSE 90; RESP 16; TEMP 98.5
--- NOTE | 2021-03-07 11:28 | P.PN ---
Progress Note - Text Progress Note Date: 03/07/21 The patient is unchanged. His abdomen soft. He is stooling. She will continue receive supportive care.
--- NOTE | 2021-03-07 13:14 | P.DS ---
Providers Date of admission: 03/05/21 22:05 Expected date of discharge: 03/07/21 Attending physician: Johanna Husain MD Consults: 03/05/21 21:32 Consult Physician Routine Consulting Provider: Nestor Merritt Consult Reason/Comments: rectal impaction Do you want consulting provider notified?: Yes Primary care physician: Stated None Hospital Course: This is a 40-year-old male with past medical history of developmental delay who presented to the emergency room from a local adult foster care with constipation and not having bowel movement for a few days. Patient was evaluated in the ER and CT abdomen and pelvis showed large amount of stool in the colon with possible rectal impaction. Patient was disimpacted in the ER. He is maintained on bowel regimen. He was admitted to the hospital for gentle IV fluid hydration. His overall condition improved significantly. He was able to tolerate regular diet and had another bowel movement on the of discharge. Patient will be discharged home in a stable condition. For further details about this hospitalization please refer to the electronic chart. Patient Condition at Discharge: Fair Plan - Discharge Summary New Discharge Prescriptions: Continue diphenhydrAMINE [Benadryl] 25 - 50 mg PO Q4-6H PRN PRN Reason: Allergy Symptoms Lactulose 20 gm PO DAILY Magnesium Hydroxide [Milk of Magnesia] 2,400 mg PO HS Cbd Oil 350mg 700 mg SL BID Acetaminophen Tab [Tylenol] 500 - 1,000 mg PO Q6H PRN PRN Reason: Fever And/ Or Pain EPINEPHrine (Auto Inject) [Epipen] 0.3 mg IM ONCE PRN PRN Reason: Anaphylaxis guaiFENesin SYRUP 100MG/5ML [Robitussin] 200 mg PO Q6H PRN PRN Reason: Cough Ibuprofen [Motrin Ib] 200 - 400 mg PO Q6H PRN PRN Reason: Fever Lactulose [Cephulac] 10 - 20 gm PO DAILY PRN PRN Reason: Constipation Magnesium Hydroxide [Milk of Magnesia] 2,400 mg PO ONCE PRN PRN Reason: Constipation Na Phos,M-B/Na Phos,Di-Ba [Fleet Adult] 133 ml RECTAL ONCE PRN PRN Reason: Constipation [place]-3 Acid Ethyl Esters [Lovaza] 1 gm PO BID Discharge Medication List Acetaminophen Tab [Tylenol] 500 - 1,000 mg PO Q6H PRN 03/05/21 [History] Cbd Oil 350mg 700 mg SL BID 03/05/21 [History] EPINEPHrine (Auto Inject) [Epipen] 0.3 mg IM ONCE PRN 03/05/21 [History] Ibuprofen [Motrin Ib] 200 - 400 mg PO Q6H PRN 03/05/21 [History] Lactulose 20 gm PO DAILY 03/05/21 [History] Lactulose [Cephulac] 10 - 20 gm PO DAILY PRN 03/05/21 [History] Magnesium Hydroxide [Milk of Magnesia] 2,400 mg PO HS 03/05/21 [History] Magnesium Hydroxide [Milk of Magnesia] 2,400 mg PO ONCE PRN 03/05/21 [History] Na Phos,M-B/Na Phos,Di-Ba [Fleet Adult] 133 ml RECTAL ONCE PRN 03/05/21 [History] [place]-3 Acid Ethyl Esters [Lovaza] 1 gm PO BID 03/05/21 [History] diphenhydrAMINE [Benadryl] 25 - 50 mg PO Q4-6H PRN 03/05/21 [History] guaiFENesin SYRUP 100MG/5ML [Robitussin] 200 mg PO Q6H PRN 03/05/21 [History] Follow up Appointment(s)/Referral(s): None,Stated [Primary Care Provider] - 1-2 days Discharge Disposition: TRANSFER TO SNF/ECF
[2021-03-07] MEDS: SODIUM CHLORIDE 0.9% 1,000 ML IV SCH (15:52)
== END 2021-03-07 16:16 ==
LOC: EC 17:51 → 6NMEDSUR 22:05
PROVIDERS: ADMIT Internal Medicine; ATTEND Internal Medicine
CPT/HCPCS: 96361; 96372 ×2; 96360; 99285; 36415; 80053; 83605; 83735; 85025; 74022; 74177; G0378 ×3; Q9967; J1644 ×2